=== PATIENT | female | born 1980 | race Caucasian/White ===

== ENCOUNTER → 2018-05-30 | Outpatient (CLI) | payer BC ==
--- NOTE | 2018-05-30 16:20 | US ---
EXAMINATION TYPE: US thyroid st tissue head/neck DATE OF EXAM: 05/30/2018 COMPARISON: NONE CLINICAL HISTORY: E04.9 Enlarged Thyroid. Patient states that during her check up, doctor felt thyroi d was enlarged. GLAND SIZE: Right Lobe: 4.7 x 2.1 x 1.5 cm Overall Parenchyma: homogenous Left Lobe: 4.1 x 1.8 x 1.4 cm Overall Parenchyma: homogeneous Isthmus Thickness: 0.3 cm NODULES RIGHT: # of nodules measured on right: 0 LEFT: # of nodules measured on left: 0 ISTHMUS: # of nodules measured in the isthmus: 1 1. 0.5 X 0.4 x 0.3 cm hypoechoic nodule at the left lateral pole with well-defined margins. This n odule is wider than tall and shows no intranodular vascularity. Prior size: No previous Bilateral neck scanned, no evidence of lymphadenopathy. Homogeneous normal-sized thyroid is identified on images viewed with 5 mm solid nodule marked in the isthmus towards end of study. IMPRESSION: As above, normal-sized thyroid without suspicious greater than 1 cm solid or cystic nodules.
== END ==
LOC: RADUSWWP 15:49
PROVIDERS: ATTEND Obstetrics & Gynecology
DX: E04.1 Nontoxic single thyroid nodule (principal)
CPT/HCPCS: 76536

== ENCOUNTER 2018-11-27 14:48 | Inpatient (IN) | payer BC ==
[2018-11-27] MEDS ORDERED: LACTATED RINGERS 1,000 ML IV ONE (15:38)
[2018-11-27] MEDS ORDERED: CITRIC ACID-SODIUM CITRATE 15 ML CUP PO ONE (15:38)
[2018-11-27] MEDS: LACTATED RINGERS 1,000 ML IV SCH (16:05)
--- NOTE | 2018-11-27 16:15 | P.HPOB ---
History of Present Illness H&P Date: 11/27/18 Chief Complaint: 38-2/7 weeks, labor, previous The patient is a 37-year-old 4 para 1021 was seen earlier in the office today with fairly significant contractions. She presented to the hospital this afternoon contractions every 2-3 minutes and in moderate discomfort. The fetus has been and remains in breech presentation. She also had spontaneous rupture of membranes which time thick meconium was noted. Her has been largely uncomplicated. She falls into the category of advanced maternal age and underwent maternal screening for trisomy which was negative. Group B strep status is negative. Obstetrical history: 4 para 1021 with 1 previous term section for arrest of descent and 2 early miscarriages not requiring D&C. Current statistics are listed in history present illness. EDC of 12/09/2018 was established by last menstrual period and confirmed by 9 week ultrasound. Laboratory workup demonstrates a blood type of O+ with a negative antibody screen. Rubella status is immune. The remainder of the laboratory workup was within normal limits. One hour Glucola was normal and group B strep status is negative. Gynecologic history: Unremarkable with no history of any infections to include STDs. Review of Systems Review of systems is confined to history of present illness. Medications and Allergies Home Medications Medication Instructions Recorded Confirmed Type Pnv No.95/Ferrous Fum/Folic AC 1 each PO DAILY 11/27/18 11/27/18 History [ Multivitamin Tablet] Allergies Allergy/AdvReac Type Severity Reaction Status Date / Time No Known Allergies Allergy Verified 11/27/18 15:10 Exam Intake and Output 11/27/18 11/27/18 11/27/18 06:59 14:59 22:59 Other: Weight 91.626 kg In general, this is a well-developed, well-nourished white female in some discomfort as she is in labor. Her heart has a regular rhythm and rate without murmur. Her lungs are clear to auscultation bilaterally in all molina. Her abdomen is gravid, nondistended, has normal active bowel sounds, is soft, nontender, and without any palpable masses aside from uterine fundus. Her extremities are without any cyanosis, clubbing, or significant edema. Digital cervical examination is deferred. Assessment and Plan (1) Breech presentation Current Visit: Yes Status: Acute Code(s): O32.1XX0 - MATERNAL CARE FOR BREECH PRESENTATION, UNSP SNOMED Code(s): 1807825 (2) Previous section Current Visit: Yes Status: Acute Code(s): Z98.891 - HISTORY OF UTERINE SCAR FROM PREVIOUS SURGERY SNOMED Code(s): 581925104 (3) Active labor at term Current Visit: Yes Status: Acute Code(s): FCP6907 - SNOMED Code(s): 64755497 Plan: The patient is admitted for repeat low transverse section. The risks and complications the procedure been thoroughly discussed and she has understood and agreed to proceed.
[2018-11-27 16:16] LABS: Basophils % (A) 0 %; Eosinophils % (A) 0 %; HCT 39.4 % (34.0-46.0); HGB 13.5 gm/dL (11.4-16.0); Lymphocytes # (A) 1.2 k/uL (1.0-4.8); Lymphocytes % (A) 11 %; MCH 33.2 pg (25.0-35.0); MCHC 34.3 g/dL (31.0-37.0); MCV 96.9 fL (80.0-100.0); Mean Platelet Volume 5.8; Monocytes # (A) 0.5 k/uL (0-1.0); Monocytes % (A) 4 %; Neutrophils # (A) 9.6 k/uL (1.3-7.7); Neutrophils % (A) 83 %; Platelet Count 349 k/uL (150-450); RBC 4.07 m/uL (3.80-5.40); RDW 13.4 % (11.5-15.5); WBC 11.5 k/uL (3.8-10.6)
[2018-11-27] MEDS ORDERED: ONDANSETRON 4 MG/2 ML VIAL ONE (16:34)
[2018-11-27] MEDS ORDERED: KETOROLAC 30 MG/ML 1 ML VIAL ONE (16:34)
[2018-11-27] MEDS ORDERED: OXYTOCIN 10 UNIT/ML 1 ML VIAL ONE (16:34)
[2018-11-27] MEDS ORDERED: MORPHINE SULFATE (PF) 0.3 MG/0.3 ML SYR ONE (16:34)
[2018-11-27] MEDS ORDERED: PHENYLEPHRINE-0.9% NACL SYG 1 MG/10 ML SYRINGE ONE (16:34)
[2018-11-27] MEDS ORDERED: HYDROcodone/APAP 5-325MG 1 EACH TAB PO PRN (17:25)
[2018-11-27] MEDS ORDERED: IBUPROFEN 600 MG TAB PO PRN (17:25)
[2018-11-27] MEDS ORDERED: ONDANSETRON 4 MG/2 ML VIAL IVP PRN (17:25)
[2018-11-27] MEDS ORDERED: LANOLIN CREAM 5 GM TUBE TOPICAL PRN (17:25)
[2018-11-27] MEDS ORDERED: SIMETHICONE 80 MG CHEWABLE PO PRN (17:25)
[2018-11-27] MEDS ORDERED: METOCLOPRAMIDE 5 MG/ML 2 ML VIAL IVP PRN (17:25)
[2018-11-27] MEDS ORDERED: diphenhydrAMINE 50 MG CAP PO PRN (17:25)
[2018-11-27] MEDS ORDERED: ZOLPIDEM 5 MG TAB PO PRN (17:25)
[2018-11-27] MEDS ORDERED: diphenhydrAMINE 25 MG CAP PO PRN (17:25)
[2018-11-27] MEDS ORDERED: diphenhydrAMINE 50 MG/ML 1 ML VIAL IVP PRN ×2 (17:25)
[2018-11-27] MEDS ORDERED: ACETAMINOPHEN TAB 325 MG TAB PO PRN (17:25)
[2018-11-27] MEDS ORDERED: NALOXONE 0.4 MG/ML 1 ML VIAL IV PRN ×2 (17:25→18:58)
[2018-11-27] MEDS ORDERED: OXYTOCIN 20 UNITS/1000 ML NS 1,000 ML IV SCH (17:30)
--- NOTE | 2018-11-27 17:33 | P.OP ---
Date of Procedure: 11/27/18 Preoperative Diagnosis: #1. 38-2/7 weeks, active labor #2. History of previous section, declining trial of labor #3. Breech presentation Postoperative Diagnosis: Same Procedure(s) Performed: #1. Repeat low transverse section Anesthesia: spinal Surgeon: Juma Tran Call Out Clerk #1: Clarice Escobar Estimated Blood Loss (ml): 500 IV fluids (ml): 900 Urine output (ml): 100 Pathology: none sent Condition: stable Disposition: floor Operative Findings: The patient had presented in active labor with documented spontaneous rupture of membranes for thick meconium-stained fluid. She was known to be in breech presentation and had a history of a previous section. She therefore was taken the operating room where she was delivered of a viable 7 lbs. 14 oz. baby girl with Apgars of 9 at 1 minute and 9 at 5 minutes in complete breech presentation with standard breech maneuvers. The nose and mouth were thoroughly suctioned upon delivery of the and the was immediately vigorous. The uterus, tubes, and ovaries were normal to inspection though there was some mild peritoneal scarring at the left angle of the uterus which was taken down sharply during the procedure. Description of Procedure: The patient was prepped and draped in usual fashion after spinal anesthesia was administered by the anesthesiologist. A Pfannenstiel incision was made through pre-existing scar and extended into the abdominal cavity without difficulty. The bladder was noted to be distal to the intended site of incision and the peritoneum was left intact. A 2 cm incision was made in the transverse plane of the lower uterine segment to enter the uterus at which minimal meconium-stained fluid was noted. The lower uterine segment was extraordinarily thin. The incision was extended in both directions using the bandage scissors. The breech was noted in the field in complete breech presentation. The breech was delivered up and through the incision and breech maneuvers were utilized to deliver the legs, arms, and then the head in standard fashion. The cord was doubly clamped, cut, and the passed resuscitative measures with weight and Apgars as noted above. A segment of cord was doubly clamped, cut, and set aside should cord gases become necessary. The placenta was delivered manually, intact, and grossly normal with a grossly normal three-vessel cord. The incision was exteriorized and the interior cavity of the uterus swept of any remaining placental or membranous fragments. The margins of the incision were grasped with Lamb clamps and the incision was closed in 2 layers. The first layer was a running locking stitch of 0 chromic catgut proceeding from margin to margin followed by a running imbricating layer of 0 chromic catgut from margin to margin. Bleeding appeared to be well controlled. The posterior cul-de-sac was suctioned with a guard and laparotomy sponge. The uterus was replaced within the abdominal cavity and the gutters swept of any remaining blood, fluid, or clot. The incision was reexamined and any small points of bleeding which were noted only on the peritoneum were made hemostatic with the Bovie. Clear urine was noted throughout the case. The parietal peritoneum was loosely reapproximated in the layer of muscles examined and found to be hemostatic. The fascia was closed with 2 running stitches of 0 Vicryl proceeding from the lateral margins to the midpoint. The subcutaneous tissues were irrigated, made hemostatic with the Bovie, and reapproximated with a running stitch of 30 plain catgut. The skin was reapproximated with a running subcuticular stitch of 4-0 Vicryl followed by half-inch Steri-Strips placed with Mastisol. Estimated blood loss for the entire case was approximate 500 mL. There were no complications. All sponge, instrument, and needle counts were correct. The patient tolerated the procedure well and proceeded to the recovery room in stable condition. Both mother and infant are resting comfortably in recovery.
[2018-11-27] MEDS ORDERED: MORPHINE SULFATE 2 MG/ML SYRINGE IVP PRN (18:58)
[2018-11-27] MEDS ORDERED: NALBUPHINE 10 MG/ML (1 ML AMP) IV PRN (18:58)
[2018-11-27] MEDS: SENNOSIDES-DOCUSATE SODIUM 1 EACH TAB PO SCH (19:51)
[2018-11-28] MEDS ORDERED: KETOROLAC 30 MG/ML 1 ML VIAL ONE (00:20)
[2018-11-28 08:21] LABS: Basophils # (A) 0.1 k/uL (0-0.2); Basophils % (A) 1 %; Eosinophils % (A) 0 %; HCT 36.3 % (34.0-46.0); HGB 11.7 gm/dL (11.4-16.0); Lymphocytes # (A) 0.6 k/uL (1.0-4.8); Lymphocytes % (A) 6 %; MCH 31.8 pg (25.0-35.0); MCHC 32.2 g/dL (31.0-37.0); MCV 98.9 fL (80.0-100.0); Mean Platelet Volume 6.5; Monocytes # (A) 0.5 k/uL (0-1.0); Monocytes % (A) 5 %; Neutrophils # (A) 8.9 k/uL (1.3-7.7); Neutrophils % (A) 88 %; Platelet Count 279 k/uL (150-450); RBC 3.67 m/uL (3.80-5.40); RDW 13.4 % (11.5-15.5); WBC 10.1 k/uL (3.8-10.6)
[2018-11-28] MEDS: HYDROcodone/APAP 7.5-325MG 1 EACH TAB PO PRN ×2 (08:24→23:01)
[2018-11-28] MEDS: SENNOSIDES-DOCUSATE SODIUM 1 EACH TAB PO SCH ×2 (08:25→20:57)
--- NOTE | 2018-11-28 08:29 | P.PNOBGPC ---
Subjective - Subjective Patient reports: Reports appetite normal, Reports voiding normally (Has not yet voided since removal of catheter.), Reports pain well controlled, Reports ambulating normally : doing well, nursing well Objective - Vital Signs Latest vital signs: Vital Signs Temp Pulse Resp BP Pulse Ox 11/27/18 21:58 16 11/27/18 19:58 16 11/27/18 19:25 98.7 F 58 L 16 124/78 97 11/27/18 19:21 16 99 11/27/18 18:54 97.9 F 55 L 18 113/67 99 11/27/18 18:25 51 L 16 112/67 97 11/27/18 18:10 55 L 16 104/56 97 11/27/18 17:55 71 16 107/54 98 11/27/18 17:40 60 16 103/59 98 11/27/18 17:25 97.3 F L 64 16 105/55 98 11/27/18 15:12 97.6 F 109 H 18 141/92 98 Intake and Output 11/27/18 11/28/18 11/28/18 22:59 06:59 14:59 Intake Total 2000 Output Total 700 Balance 1300 Intake: IV 2000 Output: Urine 200 Estimated Blood Loss 500 Other: Voiding Method Indwelling Catheter Weight 91.626 kg - Exam Extremities: Present: normal Abdomen: Present: normal appearance, soft. Absent: distention, tenderness Incision: Present: normal, dry, intact Uterus: Present: normal, firm (The uterine fundus is tonic and appropriately tender below the umbilicus.) - Labs Labs: Abnormal Lab Results - Last 24 Hours (Table) 11/27/18 11/28/18 Range/Units 16:00 06:41 WBC 11.5 H (3.8-10.6) k/uL RBC 3.67 L (3.80-5.40) m/uL Neutrophils # 9.6 H 8.9 H (1.3-7.7) k/uL Lymphocytes # 0.6 L (1.0-4.8) k/uL Assessment and Plan (1) Breech presentation Current Visit: Yes Status: Acute Code(s): O32.1XX0 - MATERNAL CARE FOR BREECH PRESENTATION, UNSP SNOMED Code(s): 6325268 (2) Previous section Current Visit: Yes Status: Acute Code(s): Z98.891 - HISTORY OF UTERINE SCAR FROM PREVIOUS SURGERY SNOMED Code(s): 877880838 (3) Active labor at term Current Visit: Yes Status: Acute Code(s): HBV4359 - SNOMED Code(s): 85769573 (4) S/P section Current Visit: Yes Status: Acute Code(s): Z98.891 - HISTORY OF UTERINE SCAR FROM PREVIOUS SURGERY SNOMED Code(s): 203186391 Plan: Continue routine postoperative and care. I have strongly encouraged the patient in the hallways regularly today. She is tolerating regular diet. I would otherwise potentially anticipate discharge home tomorrow pending no complications.
[2018-11-28] MEDS: KETOROLAC 30 MG/ML 1 ML VIAL IVP PRN ×2 (11:57→17:50)
--- NOTE | 2018-11-28 18:29 | P.PN ---
Progress Note - Text Date: 11/28/2018 Time: 18:31 The patient is status post section Vital signs stable VAS:[ 0-10] Patient has no complaints of pain. The patient incurred some minimal itching yesterday, this itching is now subsiding. Pain meds to be managed by service.
[2018-11-28] MEDS ORDERED: INFLUENZA VACCINE (6 MOS+) 60 MCG/0.5 ML SYRINGE IM ONE (19:37)
[2018-11-28] MEDS: LACTATED RINGERS 1,000 ML IV SCH ×2 (20:56→20:57)
[2018-11-29 00:51] VITALS: RESP 16
[2018-11-29] MEDS: HYDROcodone/APAP 7.5-325MG 1 EACH TAB PO PRN (08:11)
[2018-11-29 08:37] VITALS: BP 124/72; PULSE 90; TEMP 98.7
--- NOTE | 2018-11-29 08:51 | P.DS ---
Providers Date of admission: 11/27/18 15:25 Expected date of discharge: 11/29/18 Attending physician: Juma Tran Primary care physician: Stated None - Discharge Diagnosis(es) (1) Breech presentation Current Visit: Yes Status: Acute (2) Previous section Current Visit: Yes Status: Acute (3) Active labor at term Current Visit: Yes Status: Acute (4) S/P section Current Visit: Yes Status: Acute Hospital Course: The patient is a 37-year-old 4 para 1021 admitted at 38-2/7 weeks by good dating parameters. She is admitted in early labor with spontaneous rupture of membranes demonstrating thick meconium-stained fluid. She has had a previous section and has requested repeat additionally has the fetus in known br eech presentation. As result, she was taken the operating room where she underwent repeat low transverse section and was delivered of a viable 7 lbs. 14 oz. baby girl with Apgars of 9 at 1 minute and 9 at 5 minutes delivered in the complete breech presentation. Her postoperative course and course was entirely unremarkable with vital signs remaining stable and her temperature was afebrile throughout. She was deemed stable for discharge on and postoperative day #2 and was discharged home to follow-up in the office in 2 weeks for an incision check and 6 weeks routinely. Discharge instructions included calling for any significantly increased bleeding or foul- smelling lochia, significantly increased fever abdominal pain, perineal complaints, breast complaints, incisional complaints, or anything else that concerned her. She is additionally instructed to have nothing in the vagina for at least 6 weeks time to include intercourse and to abstain from any heavy lifting over the same period of time. She was lastly instructed to do no driving until off of all pain medications or 2 weeks' time, whichever came first. She understood her instructions and agrees to follow up as noted above. Discharge medications included continued vitamins as she has opted to breast-feed. She was otherwise to use [id number] analgesic pain medications as needed but was additionally provided with a prescription for [place] 5/325 mg, 1-2 by mouth every 6 hours when necessary pain, #20 dispensed with no refills. Maternal blood type is O+ and rubella status is immune. Discharge hemoglobin and hematocrit were 11.7 and 36.3 respectively. Procedures: #1. Repeat low transverse section Patient Condition at Discharge: Stable Plan - Discharge Summary New Discharge Prescriptions: No Action Pnv No.95/Ferrous Fum/Folic AC [ Multivitamin Tablet] 1 each PO DAILY Discharge Medication List Pnv No.95/Ferrous Fum/Folic AC [ Multivitamin Tablet] 1 each PO DAILY 11/27/18 [History] Follow up Appointment(s)/Referral(s): Juma Tran MD [STAFF PHYSICIAN] - 2 Weeks Discharge Disposition: HOME SELF-CARE
[2018-11-29] MEDS: SENNOSIDES-DOCUSATE SODIUM 1 EACH TAB PO SCH (13:56)
== END 2018-11-29 13:15 | disposition home or self-care (01) | DRG 788 ==
LOC: FBPOP 14:48 → 4FBP 15:25
PROVIDERS: ADMIT Obstetrics & Gynecology; ATTEND Obstetrics & Gynecology
PROC: 10D00Z1 Extraction of Products of Conception, Low, Open Approach (ICD-10-PCS; principal; 2018-11-27 16:15)
DX: O32.1XX0 Maternal care for breech presentation, not applicable or unspecified (principal); O34.211 Maternal care for low transverse scar from previous cesarean delivery; O77.0 Labor and delivery complicated by meconium in amniotic fluid; Z37.0 Single live birth; Z3A.38 38 weeks gestation of pregnancy
CPT/HCPCS: 59025; 85025; 86850; 86900; 86901; 90686; 99213